=== PATIENT | male | born 1960 | race Caucasian/White ===

== ENCOUNTER 2021-01-19 16:35 | Observation (INO) | payer OTHER ==
[~2021-01-19] VITALS: Ht 188 cm; Wt 90.7 kg
[~2021-01-19 16:35] MED LIST: HYDACE5; META800 PO; MULVITA
[2021-01-19 17:26] LABS: BASOPHILS ABSOLUTE AUTO 0.12 K/mm3 (0.00-0.23); BASOPHILS PERCENT AUTO 1 % (0-2); EOSINOPHILS ABSOLUTE AUTO 0.08 K/mm3 (0.00-0.68); EOSINOPHILS PERCENT AUTO 1 % (0-6); Hematocrit 52.3 % (37.0-53.0); IMMATURE GRAN ABSOLUTE AUTO 0.06 K/mm3 (0.00-0.10); IMMATURE GRAN PERCENT AUTO 1 % (0-1); LYMPHOCYTES ABSOLUTE AUTO 1.79 K/mm3 (0.84-5.20); LYMPHOCYTES PERCENT AUTO 14 % (21-46); MONOCYTES ABSOLUTE AUTO 0.64 K/mm3 (0.16-1.47); MONOCYTES PERCENT AUTO 5 % (4-13); Mean Corpuscular HGB 34.8 pg (26.0-34.0); Mean Corpuscular HGB Conc 34.4 g/dL (31.5-36.5); Mean Corpuscular Volume 101 fL (80-100); Mean Platelet Volume 9.9 fL (9.1-12.4); NEUTROPHILS ABSOLUTE AUTO 10.16 K/mm3 (1.96-9.15); NEUTROPHILS PERCENT AUTO 79 % (41-73); Platelet Count 233 K/mm3 (150-400); RDW Coefficient Variation 13.2 % (11.7-14.2); RDW Standard Deviation 50.2 fL (35.1-46.3); Red Blood Cell Count 5.17 M/mm3 (4.30-5.90); White Blood Cell Count 12.85 K/mm3 (4.00-11.30)
[2021-01-19 17:49] LABS: Alanine Aminotransfer (ALT/SGP 129 U/L (12-78); Albumin/Globulin Ratio 0.8 (0.8-1.8); Alk Phos 116 U/L (50-136); Anion Gap 11 mmol/L (6-16); Aspartate Aminotrans (AST/SGOT 88 U/L (12-37); Bilirubin, Total 0.5 mg/dL (0.1-1.0); Blood Urea Nitrogen 10 mg/dL (8-24); CO2, Blood 21 mmol/L (21-32); Calcium, Blood 8.9 mg/dL (8.5-10.1); Chloride, Blood 106 mmol/L (98-108); Creatinine, Blood 0.77 mg/dL (0.60-1.20); Ethanol (Alcohol), Blood, Med 170 mg/dL; Globulin, Blood 4.9 g/dL (2.2-4.0); Glomerular Filtration Rate >60 (60-); Glucose, Blood 101 mg/dL (70-99); Salicylate 4.9 mg/dL (2.8-20.0); Sodium, Blood 138 mmol/L (136-145); Total Protein, Blood 8.9 g/dL (6.4-8.2)
[2021-01-19 17:53] LABS: Acetaminophen, Random <2.0 ug/mL (10.0-30.0)
[2021-01-19 20:01] LABS: Source, Urine Clean Catch
[2021-01-19 20:12] LABS: Appearance, Urine Clear (Clear); Bilirubin, Urine Neg (Neg); Blood, Urine 3+ (Neg); Color, Urine Yellow (P-Yellow); Glucose Qualitative, Urine Neg (Neg); Ketones, Urine 3+ (Neg); Leukocyte Esterase, Urine 1+ (Neg); Nitrite, Urine Neg (Neg); Protein, Urine 3+ (Neg); Specific Gravity, Urine 1.025 (1.003-1.022); Urobilinogen, Urine 3+ (Normal)
[2021-01-19 20:54] LABS: Bacteria Rare /hpf; Red Blood Cells, Urine 0-2 /hpf (0-2); Squamous Epithelial Cells Rare /hpf (Few)
[2021-01-19 20:55] LABS: Granular Casts 0-2 /lpf (0); Mucus Mod (0-Heavy); WBC Cast Rare /lpf (0)
[2021-01-19 20:56] LABS: U Amphetamine Screen Not Detected; U Barbituate Screen Not Detected; U Benzodiazapine Screen Not Detected; U Buprenorphine Screen Not Detected; U Cannabinoids Screen Not Detected; U Cocaine Screen Not Detected; U Methadone Screen Not Detected; U Methamphetamine Screen Not Detected; U Opiates Screen Not Detected; U Oxycodone Screen Not Detected; U Phencyclidine Screen Not Detected; U Propoxyphene Screen Not Detected
[2021-01-19 21:16] LABS: Influenza A, PCR NEGATIVE (NEGATIVE); Influenza B, PCR NEGATIVE (NEGATIVE); Resp Syncytial Virus, PCR NEGATIVE (NEGATIVE); SARS-Cov-2 (COVID-19) PCR, MMC NEGATIVE (NEGATIVE)
[2021-01-20] MEDS ORDERED: CHLO25 PO (10:14)
== END 2021-01-20 11:14 | disposition home or self-care (01) ==
LOC: ER 16:35 → EOR 16:36
PROVIDERS: Physician Assistant; ADMIT Emergency Medicine
DX: F10.129 Alcohol abuse with intoxication, unspecified (principal); R45.851 Suicidal ideations; F17.200 Nicotine dependence, unspecified, uncomplicated; Z79.899 Other long term (current) drug therapy; Z20.822 Contact with and (suspected) exposure to COVID-19; Y90.6 Blood alcohol level of 120-199 mg/100 ml
CPT/HCPCS: 0241U; 36415; 80053; 81001; 85025; 87086; 99285; A9270; G0378; G0480

== ENCOUNTER 2021-06-27 12:51 | Inpatient (IN) | payer OTHER ==
[~2021-06-27] VITALS: Ht 182.9 cm; Wt 86.5 kg
[~2021-06-27 12:51] MED LIST changes: +CHLO25 PO
[2021-06-27 13:23] LABS: BASOPHILS ABSOLUTE AUTO 0.03 K/mm3 (0.00-0.23); BASOPHILS PERCENT AUTO 0 % (0-2); EOSINOPHILS PERCENT AUTO 0 % (0-6); Hematocrit 46.2 % (37.0-53.0); IMMATURE GRAN ABSOLUTE AUTO 0.06 K/mm3 (0.00-0.10); IMMATURE GRAN PERCENT AUTO 0 % (0-1); LYMPHOCYTES ABSOLUTE AUTO 0.48 K/mm3 (0.84-5.20); LYMPHOCYTES PERCENT AUTO 3 % (21-46); MONOCYTES ABSOLUTE AUTO 1.05 K/mm3 (0.16-1.47); MONOCYTES PERCENT AUTO 7 % (4-13); Mean Corpuscular HGB 34.1 pg (26.0-34.0); Mean Corpuscular HGB Conc 34.6 g/dL (31.5-36.5); Mean Corpuscular Volume 99 fL (80-100); Mean Platelet Volume 10.9 fL (9.1-12.4); NEUTROPHILS ABSOLUTE AUTO 13.19 K/mm3 (1.96-9.15); NEUTROPHILS PERCENT AUTO 89 % (41-73); Platelet Count 175 K/mm3 (150-400); RDW Coefficient Variation 12.5 % (11.7-14.2); RDW Standard Deviation 45.6 fL (35.1-46.3); Red Blood Cell Count 4.69 M/mm3 (4.30-5.90); White Blood Cell Count 14.81 K/mm3 (4.00-11.30)
[2021-06-27 13:42] LABS: Alanine Aminotransfer (ALT/SGP 161 U/L (12-78); Albumin, Blood 3.4 g/dL (3.4-5.0); Albumin/Globulin Ratio 0.8 (0.8-1.8); Alk Phos 94 U/L (50-136); Anion Gap 11 mmol/L (6-16); Aspartate Aminotrans (AST/SGOT 133 U/L (12-37); Bilirubin, Total 0.4 mg/dL (0.1-1.0); Blood Urea Nitrogen 12 mg/dL (8-24); Bun/Creatinine Ratio 16.9 (12.0-20.0); CO2, Blood 25 mmol/L (21-32); Calcium, Blood 8.6 mg/dL (8.5-10.1); Chloride, Blood 102 mmol/L (98-108); Creatinine, Blood 0.71 mg/dL (0.60-1.20); Ethanol (Alcohol), Blood, Med <3 mg/dL; Globulin, Blood 4.1 g/dL (2.2-4.0); Glomerular Filtration Rate 106 (60-); Glucose, Blood 166 mg/dL (70-99); Potassium, Blood 3.7 mmol/L (3.5-5.5); Sodium, Blood 138 mmol/L (136-145); Total Protein, Blood 7.5 g/dL (6.4-8.2)
[2021-06-27 16:09] LABS: Source, Urine Condom Cath
[2021-06-27 16:15] LABS: Appearance, Urine Clear (Clear); Bilirubin, Urine Neg (Neg); Blood, Urine 5+ (Neg); Color, Urine Amber (P-Yellow); Glucose Qualitative, Urine 2+ (Neg); Ketones, Urine 2+ (Neg); Leukocyte Esterase, Urine Neg (Neg); Nitrite, Urine Neg (Neg); Protein, Urine 2+ (Neg); Specific Gravity, Urine 1.025 (1.003-1.022); Urobilinogen, Urine NORM (Normal)
[2021-06-27 16:23] LABS: Mucus Light (0-Heavy)
[2021-06-27 16:24] LABS: Bacteria Mod /hpf; Red Blood Cells, Urine 0-2 /hpf (0-2); Squamous Epithelial Cells Not Seen /hpf (Few); White Blood Cells, Urine 0-2 /hpf (0-5)
[2021-06-27 16:38] LABS: U Amphetamine Screen Not Detected; U Barbituate Screen Not Detected; U Benzodiazapine Screen Not Detected; U Buprenorphine Screen Not Detected; U Cannabinoids Screen Not Detected; U Cocaine Screen Not Detected; U Methadone Screen Not Detected; U Methamphetamine Screen Not Detected; U Opiates Screen Not Detected; U Oxycodone Screen Not Detected; U Phencyclidine Screen Not Detected; U Propoxyphene Screen Not Detected
[2021-06-27 16:44] LABS: PCO2 Arterial 43.6 mmHg (35-45); PO2 Arterial 111 mmHg (80-100)
[2021-06-27 18:22] LABS: Creatine Kinase MB 25.2 ng/mL (0.0-3.6); Creatine Kinase MB Index 0.5 (0.0-4.0)
--- NOTE | 2021-06-27 23:00 | NUR ---
UPDATE/ICU TRANSFER PT ARRIVED TO ED AT 2054. PT AWAKENS TO VERBAL STIMULI. GARBLED SPEECH, PT CONFUSED ON LOCATION, HAVING VIVID HALLUCINATIONS. SOILED IN URINE AND FECES UPON ARRIVAL TO UNIT. R LEG COVERED IN RED RASH, BLISTER ON L SHOULDER. PICS IN CHART. PT CONT TO PULL AT LINES, ATTEMPTING TO CLIMB OUT OF BED. PHYSICIAN NOTIFIED. CIWA ORDERS PLACED. PT CIWA 19, MEDICATED WITH 4MG OF ATIVAN. PT CONT TO HAVE SEVERE TREMORS, YELLING OUT. PHYSICIAN NOTIFIED OF POSSIBLE SEIZURE LIKE ACTIVITY OR SEVERE WITHDRAWL. PHYSICIAN AT BEDSIDE TOLD TO GIVE 4 MORE MG OF ATIVAN. PT NOW SLEEPING. EKG DONE PER PHYSICIAN ORDER. ORDERS FOR PT TO BE TRANSFERRRED TO ICU. REPORT GIVEN TO TAVO RN BY [facility] STUDENT RN UNDER THIS RN SUPERVISION. PT TRANSPORTED TO ICU 7 BY THIS RN AND STUDENT WITH CHART AND ALL BELONGINGS.
--- NOTE | 2021-06-27 23:26 | NUR ---
ASSUMED CARE. REPORT RECEIVED FROM AIRCRAFT SHIPPING CHECKER. PT ARRIVED TO ICU AT APPROXIMATELY 2250. PT GIVEN 8MG ATIVAN IN PCU PRIOR TO ICU ADMIT, UPON ARRIVAL PT WAS SLEEPING AND UNAROUSABLE. PT ON 02 VIA NC AT 2 L/MIN. IV ACCESS IN R/AC. SECOND IV STARTED IN L/FOREARM. DIEGO CATHETER INSERTED, UA SENT TO LAB. VS STABLE ATT, WILL CONTINUE TO MONITOR.
[2021-06-27 23:41] LABS: Source, Urine Foley catheter
[2021-06-27 23:43] LABS: Bilirubin, Urine Neg (Neg); Blood, Urine 3+ (Neg); Glucose Qualitative, Urine Neg (Neg); Ketones, Urine Neg (Neg); Leukocyte Esterase, Urine Neg (Neg); Nitrite, Urine Neg (Neg); Protein, Urine 1+ (Neg); Urobilinogen, Urine NORM (Normal)
[2021-06-28 00:16] LABS: Appearance, Urine Clear (Clear); Color, Urine Yellow (P-Yellow)
[2021-06-28 00:17] LABS: Bacteria Rare /hpf; Squamous Epithelial Cells Not Seen /hpf (Few)
[2021-06-28 04:06] LABS: Magnesium, Blood 2.3 mg/dL (1.6-2.4)
[2021-06-28 04:12] LABS: Albumin, Blood 2.7 g/dL (3.4-5.0); Albumin/Globulin Ratio 0.8 (0.8-1.8); Bilirubin, Total 0.3 mg/dL (0.1-1.0); Creatinine, Blood 0.69 mg/dL (0.60-1.20); Globulin, Blood 3.6 g/dL (2.2-4.0); Potassium, Blood 3.7 mmol/L (3.5-5.5); Total Protein, Blood 6.3 g/dL (6.4-8.2)
--- NOTE | 2021-06-28 09:05 | NUR ---
TOOK OVER CARE OF PT AT 0850, PT RESTING ON 2L NC, AND .5 OF PRECEDEX RUNNING
[2021-06-28 11:42] LABS: PCO2 Arterial 35.3 mmHg (35-45); PO2 Arterial 64.3 mmHg (80-100); pH Blood Arterial 7.44 (7.35-7.45)
[2021-06-28 15:49] LABS: Bun/Creatinine Ratio 11.3 (12.0-20.0); Calcium, Blood 7.9 mg/dL (8.5-10.1); Creatinine, Blood 0.8 mg/dL (0.60-1.20); Potassium, Blood 3.9 mmol/L (3.5-5.5)
--- NOTE | 2021-06-28 17:47 | NUR ---
SUMMARY NEURO; PT IS LETHARGIC, DOES NOT FOLLOW COMMANDS BUT WILL BECOME VERY AGITATED VERY QUICKLY AFTER BARELY RESPONDING TO STIMULI SUCH NT SUCTIONING. NO COHERENT WORDS UTTERED, ONLY GARBLED MUMBLING. PT HAS NOT OPEN THEIR EYES BY THEMSELVES THIS SHIFT BUT HAS FIDGETED A FEW TIMES. INTERMITTENT EPISODES OF TWITCHING AND TREMORS. SEIZURE PADS IN PLACE. 4MG ATIVAN GIVEN THROUGHOUT THIS SHIFT. PT CURRENTLY ON .3 OF PRECEDEX GTT. LUNGS: RHONCHI THROUGHOUT, PT WAS NOT MAINTAINING AIRWAY AT BEGINNING OF SHIFT, ALLOWED TONGUE TO FLOP IN BACK OF THROAT WHILE ON 2LNC, INCREASED TO 4LNC AND A NASAL TRUMPET PLACED. FREQUENT DEEP NT SUCTIONING. THICK DOUGHERTY SECRETIONS REMOVED AND SPUTUM CULTURE SENT. DR. SHEPHERD TO BEDSIDE AND DETERMINED NO NEED FOR INTUBATION AT THIS TIME. SKIN; SUN BURN GI; NPO ; URINE WAS INITIALLY KULWINDER, PT GOT DOWN TO 5ML/HR OF URINE MADE BEFORE 1L NS BOLUS STARTED. URINE CLEARED UP UNTIL 1600 AND NOW THE URINE OUPUT HAS DECREASED BACK TO 25ML/HR FOR 1700 AND 1800.
--- NOTE | 2021-06-28 21:19 | NUR ---
SHIFT ASSESSMENT PT LIGHTLY SEDATED IN BED, ON 0.3MCG/KG/HR OF PRECEDEX. PRN ATIVAN FOR SEZIURES AND CIWA. BL SOFT WRIST RESTRAINTS IN PLACE DUE TO PT PULLING AT LINES/ UNPREDICTABLE BEHAVIOR. NASAL TRUMPET IN R NARE FOR NT SUCTION. PT CURRENTLY ABLE TO COUGH AND CLEAR/ SWALLOW SECRETIONS. ON 3-6LPM O2 VIA NC c O2 SATS >88%. PT WILL AWAKEN, VERBAL RESPONSE INCOMPREHENSIBLE. STRONG ACCOUNT MANAGER FOREST SERVICE STRENGTH OF L HAND TO COMMAND, MOVING ALL EXTREMITIES. OCCASIONALLY TREMULOUS. TEMP PROBE DIEGO PATENT, DRAINING KULWINDER URINE. NPO, NO BM TODAY. ORAL CAVITY CRUSTY, TEETH MISSING, FREQUENT ORAL CARE. WILL CONTINUE TO MONITOR CLOSELY.
[2021-06-29 03:28] LABS: BASOPHILS ABSOLUTE AUTO 0.07 K/mm3 (0.00-0.23); BASOPHILS PERCENT AUTO 1 % (0-2); EOSINOPHILS ABSOLUTE AUTO 0.05 K/mm3 (0.00-0.68); EOSINOPHILS PERCENT AUTO 0 % (0-6); Hematocrit 45.5 % (37.0-53.0); Hemoglobin 14.7 g/dL (13.5-17.5); IMMATURE GRAN ABSOLUTE AUTO 0.03 K/mm3 (0.00-0.10); IMMATURE GRAN PERCENT AUTO 0 % (0-1); LYMPHOCYTES ABSOLUTE AUTO 1.57 K/mm3 (0.84-5.20); LYMPHOCYTES PERCENT AUTO 13 % (21-46); MONOCYTES ABSOLUTE AUTO 1.71 K/mm3 (0.16-1.47); MONOCYTES PERCENT AUTO 14 % (4-13); Mean Corpuscular HGB 34.1 pg (26.0-34.0); Mean Corpuscular HGB Conc 32.3 g/dL (31.5-36.5); Mean Platelet Volume 10.9 fL (9.1-12.4); NEUTROPHILS PERCENT AUTO 73 % (41-73); Platelet Count 146 K/mm3 (150-400); RDW Coefficient Variation 13.2 % (11.7-14.2); RDW Standard Deviation 52.5 fL (35.1-46.3); Red Blood Cell Count 4.31 M/mm3 (4.30-5.90); White Blood Cell Count 12.53 K/mm3 (4.00-11.30)
[2021-06-29 03:37] LABS: Mean Corpuscular Volume 106 fL (80-100)
[2021-06-29 03:52] LABS: Magnesium, Blood 2.1 mg/dL (1.6-2.4)
[2021-06-29 04:45] LABS: PCO2 Arterial 33.1 mmHg (35-45); PO2 Arterial 57.9 mmHg (80-100); pH Blood Arterial 7.46 (7.35-7.45)
[2021-06-29 05:16] LABS: Bun/Creatinine Ratio 11.1 (12.0-20.0); Calcium, Blood 8.1 mg/dL (8.5-10.1); Creatinine, Blood 0.72 mg/dL (0.60-1.20); Phosphorus, Blood 1.9 mg/dL (2.5-4.9); Potassium, Blood 3.7 mmol/L (3.5-5.5)
--- NOTE | 2021-06-29 06:16 | NUR ---
SHIFT SUMMARY PT REMAINS SEDATED c PRECEDEX. INCONSISTENTLY FOLLOWING SIMPLE COMMANDS. MOST OF THE NIGHT PRECEDEX @ A FAIRLY LOW DOSE BUT PT BECAME MORE AGITATED LATER THIS MORNING, CURRENTLY @ 0.7MCG/KG/HR. WITH THE INCREASED AGITATION PTS TEMPERATURE IS CLIMBING, T-MAX OF 101.0. ICE PACKS TO AXILLA AND FAN ON PT, TEMP SLOWLY GOING DOWN. PT MEDICATED MULTIPLE TIMES c ATIVAN FOR CIWA SCORES >15. PT ALSO HAVING WHAT APPEARS TO BE SEIZURES, MEDICATED c ATIVAN MULTIPLE TIMES. PT COUGHING UP THICK DOUGHERTY SPUTUM. REMAINS ON NC @ 5LPM c O2 SATS >90%. URINE OUTPUT >30ML/HR, COLOR LIGHTENING FROM KULWINDER TO LIGHT YELLOW. NO OTHER ACUTE CHANGES.
--- NOTE | 2021-06-29 11:21 | NUR ---
UPDATE REPORT GIVEN TO ROSE NICOLE TO ASSUME CARE
--- NOTE | 2021-06-29 17:07 | NUR ---
SHIFT SUMMARY PT HAS BEEN RESTING IN BED SINCE ASSUMING CARE AT 1100. HE REMAINS ON PRECEDEX. AFTER HIS BED BATH HIS RR AND HR WERE BOTH ELEVATED AND PT WAS MORE AGITATED. CIWAA 14 AT THAT TIME SO ATIVAN GIVEN AND PT RELAXED, HR AND RR CAME DOWN. PT HAS PURPOSEFUL MOVEMENTS, LIKE REACHING FOR THE SUCTION DURING ORAL CARE, BUT IS ONLY RESPONDING TO PAIN AND IS NOT FOLLOWING COMMANDS. HE HAS HAD A LARGE AMT OF SPUTUM COUGHED UP, REQUIRING ORAL SUCTIONING SOMETIMES TO CLEAR THE SPUTUM. THE SPUTUM IS THICK, DOUGHERTY-DARK BROWN. LUNGS ARE COARSE. 4L/NC. SINUS TACH WITH RATE IN THE LOW 100S. BP STABLE. NOT SAFE FOR PO INTAKE TODAY. DIEGO WITH YELLOW URINE. WOUNDS UNCHANGED. CONTINUING TO MONITOR.
--- NOTE | 2021-06-29 19:13 | NUR ---
ASSUMPTION OF CARE PT IS RECEIVING PRECEDEX 0.5MCG/KG/HR AND D5 1/2NS AT 75ML/HR. HE IS ON 4L NC. HE APPEARS TO BE RESTING COMFORTABLY, RESPONDS TO NOXIOUS STIMULI, MOVES HEAD SIDE TO SIDE AND PULLS AGAINST WRIST RESTRAINTS. DIEGO IN PLACE. TEMP 100.2, ICE PACKS AND FAN IN PLACE. SEE SHIFT ASSESSMENT.
[2021-06-30 03:35] LABS: BASOPHILS PERCENT AUTO 1 % (0-2); EOSINOPHILS ABSOLUTE AUTO 0.18 K/mm3 (0.00-0.68); EOSINOPHILS PERCENT AUTO 1 % (0-6); Hematocrit 44.6 % (37.0-53.0); Hemoglobin 14.9 g/dL (13.5-17.5); IMMATURE GRAN ABSOLUTE AUTO 0.07 K/mm3 (0.00-0.10); IMMATURE GRAN PERCENT AUTO 1 % (0-1); LYMPHOCYTES ABSOLUTE AUTO 1.37 K/mm3 (0.84-5.20); LYMPHOCYTES PERCENT AUTO 9 % (21-46); MONOCYTES ABSOLUTE AUTO 2.16 K/mm3 (0.16-1.47); MONOCYTES PERCENT AUTO 15 % (4-13); Mean Corpuscular HGB 34.1 pg (26.0-34.0); Mean Corpuscular HGB Conc 33.4 g/dL (31.5-36.5); Mean Corpuscular Volume 102 fL (80-100); Mean Platelet Volume 10.6 fL (9.1-12.4); NEUTROPHILS ABSOLUTE AUTO 10.66 K/mm3 (1.96-9.15); NEUTROPHILS PERCENT AUTO 73 % (41-73); Platelet Count 147 K/mm3 (150-400); RDW Coefficient Variation 12.5 % (11.7-14.2); RDW Standard Deviation 47.8 fL (35.1-46.3); Red Blood Cell Count 4.37 M/mm3 (4.30-5.90); White Blood Cell Count 14.54 K/mm3 (4.00-11.30)
[2021-06-30 03:52] LABS: Bun/Creatinine Ratio 10.2 (12.0-20.0); Calcium, Blood 8.3 mg/dL (8.5-10.1); Creatinine, Blood 0.79 mg/dL (0.60-1.20); Magnesium, Blood 2.1 mg/dL (1.6-2.4); Phosphorus, Blood 2.7 mg/dL (2.5-4.9); Potassium, Blood 3.7 mmol/L (3.5-5.5)
--- NOTE | 2021-06-30 05:23 | NUR ---
SHIFT SUMMARY PT REMAINS ON PRECEDEX 0.5MCG/KG/HR AND D5 1/2NS 75ML/HR. HE RESPONDS TO QUESTIONS BY NODDING/SHAKING HEAD. HE DENIES PAIN, DISCOMFORT, AND ANXIETY. HE IS ABLE TO SQUEEZE WITH BOTH HANDS. OCCASIONALLY OPENS EYES TO VERBAL STIMULI BUT THEN CLOSES THEM. ORAL CARE PROVIDED SEVERAL TIMES THROUGHOUT SHIFT. PT HAS LARGE AMOUNTS OF THICK BROWN SECRETIONS BUILT UP IN ORAL CAVITY. PT COOPERATIVE WITH CARE. HE HAS A STRONG COUGH THAT IS PRODUCTIVE. PT REMAINS IN BILAT SOFT WRIST RESTRAINTS DUE TO SEDATION. CORE TEMP 99.1. DIEGO PATENT AND DRAINING YELLOW URINE WITH SHIFT OUTPUT 1550ML. VSS. WILL REPORT TO ONCOMING RN.
--- NOTE | 2021-06-30 09:21 | NUR ---
0800 ASSUMED CARE PATIENT DROWSY BUT ALERT TO VOICE. HE STATES HE NAME AND .. MUMBLING. DARNELL VS STABLE AND HE IS AFEBRILE. HE IS ON PRECEDEX AT 0.5.. TITRATING TO OFF.. PATIENT HAS DIEGO.. DIEGO CARE COMPLETE..GOOD URINE OUT PUT. IV MEDS AND SQ MEDS GIVEN. PIV WITH IV FLUIDS GOING ALONG WITH D5-1/2NS AT 75/HR. NO ACUTE CHANGES AT THIS TIME. WILL CONTINUE CARE FOR THE DAY.
--- NOTE | 2021-06-30 11:27 | NUR ---
1030 am swallow eval.. patient was able to swallow water from a cup and from a straw without difficulty. He has a good cough response if necessary but did not cough s/p drinking the water. He ate some jello too. Dr Alvarado was notified and she ordered librium now and a full liquid diet for him. He does still tremble with his hands but otherwise his CIWA is bean 3 from that.
--- NOTE | 2021-06-30 17:13 | NUR ---
end of shift report: Orville has had a moderately ok day. He is more alert, talking however more a mumble then clear. He is alert and oriented to person/place/date within a few days, date of . He is eating and drinking without difficulty on a full liquid diet. His dentures are not in his mouth but are at bedside at this time. He has a visitor this afternoon and is interacting with him and able to state he is family. Vital signs are stable but temp is low grade, he has been washed down with cool clothes and has only a sheet on. Urine output has been good today. Report to be given to PCU staff to assume care.
[2021-07-01 04:22] LABS: BASOPHILS ABSOLUTE AUTO 0.06 K/mm3 (0.00-0.23); BASOPHILS PERCENT AUTO 1 % (0-2); EOSINOPHILS ABSOLUTE AUTO 0.13 K/mm3 (0.00-0.68); EOSINOPHILS PERCENT AUTO 1 % (0-6); Hematocrit 40.1 % (37.0-53.0); Hemoglobin 13.8 g/dL (13.5-17.5); IMMATURE GRAN ABSOLUTE AUTO 0.08 K/mm3 (0.00-0.10); IMMATURE GRAN PERCENT AUTO 1 % (0-1); LYMPHOCYTES ABSOLUTE AUTO 1.26 K/mm3 (0.84-5.20); LYMPHOCYTES PERCENT AUTO 13 % (21-46); MONOCYTES ABSOLUTE AUTO 1.55 K/mm3 (0.16-1.47); MONOCYTES PERCENT AUTO 16 % (4-13); Mean Corpuscular HGB Conc 34.4 g/dL (31.5-36.5); Mean Corpuscular Volume 99 fL (80-100); Mean Platelet Volume 10.9 fL (9.1-12.4); NEUTROPHILS PERCENT AUTO 68 % (41-73); Platelet Count 209 K/mm3 (150-400); RDW Coefficient Variation 12.5 % (11.7-14.2); RDW Standard Deviation 45.5 fL (35.1-46.3); Red Blood Cell Count 4.06 M/mm3 (4.30-5.90); White Blood Cell Count 9.58 K/mm3 (4.00-11.30)
[2021-07-01 04:46] LABS: Bun/Creatinine Ratio 10.3 (12.0-20.0); Calcium, Blood 8.6 mg/dL (8.5-10.1); Creatinine, Blood 0.97 mg/dL (0.60-1.20); Magnesium, Blood 2.2 mg/dL (1.6-2.4); Phosphorus, Blood 2.9 mg/dL (2.5-4.9); Potassium, Blood 3.7 mmol/L (3.5-5.5)
--- NOTE | 2021-07-01 05:11 | NUR ---
SHIFT SUMMARY PT ALERT, CONFUSED. PT LOOKING FOR PEN IN BED. WHEN ASKED WHAT FOR, PT STATES, "TO TAKE THE TEST!" SP02>92% ON RA. SINUS TACH, VSS. LIBRIUM GIVEN X1 THIS SHIFT. DIEGO CATHETER DRAINING DARK YELLOW URINE TO GRAVITY. PT ATTEMPTING TO CLIMB OUT OF BED, LOOKING FOR THINGS UNDER BED. SLEPT AT BEGINNING OF SHIFT. AWAKE FOR THE 2ND HALF. BED ALARM ON. CAMERA ON. CALL LIGHT IN REACH.
--- NOTE | 2021-07-01 18:00 | NUR ---
ASSUMED CARE OF PT AT 0700. PT WORKED WITH SPEECH THERAPY TODAY, DIET ADVANCED TO PUREE, PILLS WHOLE WITH APPLE SAUCE, PT TOLERATED DIET WELL ALL DAY. PHYSICAL THERAPY WORKED WITH PT TODAY WELL. PT HAS HAD NO COMPLAINTS, SEE DOCUMENTED VS. NO ACUTE EVENTS. PT HAS HAD SOME PO INTAKE AND GOOD URINE OUTPUT IN DIEGO. BED ALARM AND CAMERA MONITORING ON FOR SAFETY. WILL CONTINUE TO MONITOR AND GIVE REPORT TO NOC SHIFT RN.
--- NOTE | 2021-07-02 06:07 | NUR ---
SHIFT SUMMARY NO ACUTE CHANGES OVERNIGHT. PT ALERT, SLEEPY, FOLLOWED DIRECTIONS. VSS. PT REPOSITIONED SELF IN BED. DIEGO CATHETER DRAINING TO GRAVITY. NO BM THIS SHIFT. PT DENIED PAIN. CIWA OF 3 D/T TREMORS AND NOT ORIENTED TO DATE. SLEPT MOST OF NIGHT. ABX INFUSED PER EMAR. CALL LIGHT IN REACH. BED ALARM ON.
--- NOTE | 2021-07-02 07:58 | NUR ---
CARE ASSUMPTION THIS RN ASSUMED CARE AT 0700 FROM KIMBER NICOLE. PATIENT IS ALERT AND ORIENTED X4. PERRLA. PATIENT DOESN'T REMEMBER HOW HE GOT TO THE HOSPITAL AND THIS RN PROVIDED THERAPUETIC COMMUNICATION AND ACTIVE LISTENING. THIS RN EXPLAINED THAT HE WAS FOUND DOWN AND BROUGHT IN. THIS RN ASKED IF HE LIVES IN HIS CAR, AND PATIENT STATED HE CURRENTLY IS BECAUSE HE AND HIS GIRLFRIEND BROKE UP AND GOT KICKED OUT AND SHE HAD SOMEONE ELSE MOVE IN. THIS RN ASKED IF HE CURRENTLY WORKS. PATIENT STATED "NOT CURRENTLY, BUT USED TO WORK AT [employer]." PATIENT MAIN CONCERNS ARE WHERE HIS GLASS, DENTURES, AND PHONE ARE. THIS RN GAVE THE PATIENT HIS BELONGING BAGS AND THEY WERE NOT IN HIS BAGS OR IN THE ROOM WHEN THIS RN LOOKED. I WILL LOOK THROUGH OLD NOTES TO DETERMINE IF THEY WERE WITH HIM WHEN HE ARRIVED. PATIENT REPORTS NO CHEST PAIN, HEADACHE, OR PAIN. TELE SR 95. VSS. SPO2 >93% ON RA. STRONG RADIAL AND PEDIS PULSES NO EDEMA. PATIENT LUNG SOUNDS COARSE AND REPORTS MINIMAL SHORTNESS OF BREATH WITH EXERTION IN BED. ABD SOFT ACTIVE NONTENDER. PATIENT HAS REDDNSS TO SKIN FOLDS, BLISTER ON LEFT ARM THAT IS OPEN TO AIR, REDDNESS TO RIGHT THIGH, REDDNESS TO PENIS, AND DRY MUCOUS MEMBRANES AND PLAQUE ON ROOF OF MOUTH. SEE SHIFT ASSESSMETN FOR FURTHER DETAILS. CIWA SCORE THIS AM WAS 1, SEE ASSESSMENT. SPEECH IS IN THIS AM TO WORK WITH THE PATIENT. DIEGO CATH IS DRAINING WITH GRAVITY, YELLOW COLORATION. CALL LIGHT WITHIN REACH AND BED IN LOWEST POSITION. WILL CONINTUE TO MONITOR AND PROVIDE CARE.
--- NOTE | 2021-07-02 11:34 | NUR ---
UPDATE-SI OCCUPATIONAL THERAPY JOESPH WAS IN WORKING WITH THE PATIENT. THE PATIENT BEGAN TO VENT AND TOLD THE OCCUPATIONAL THERAPIST THAT HE OVERDOSED ON HIS AMITRIPTYLINE AND BEERS A SUICIDE ATTEMPT. OCCUPATIONAL THERAPIST INFORMED THIS RN. THIS RN INFORMED HOSTESS AND WENT IN TO DO AN ASSESSMENT ON THE PATIENT. THIS RN USED THERAPITIC COMMUNICATION, ACTIVE LISTENING, AND SILENCE THROUGHOUT THE COVNERSATION. PATIENT STATED THAT HE HAS SUCICIDAL THOUGHTS SINCE HIS ATTEMPT, BUT DOESNT HAVE A PLAN, AND THE THOUGHTS COME AND GO. THE PATIENT RECENTLY MOVED HERE FROM [facility] AFTER THE EX GIRLFRINED REACHED OUT TO HIM ON FACEBOOK AND WANTED TO GET BACK TOGETHER. PRIOR TO THIS IT HAS BEEN FIVE YEARS SINCE HE SPOKE TO HER. HE GOT A JOB AT [employer] AND MOVED IN WITH HIS EX GIRLFRIEND. PATIENT STAED "SHE STARTED TO GROW DISTANT AND HE WOULD ASK WHATS WRONG AND SHE WOULD SAY EVERYTHING IS FINE" HE STATED SHE LATER KICKED HIM OUT AND HE HAS BEEN LIVING IN HIS CAR FOR ABOUT A MONTH. HE STATED DURING THIS MONTH PERIOD HE WOULD DROP OFF NOTES AT HER HOUSE ASKING HER TO TALK TO HIM. HE STATED THAT A COUPLE OF THE TIMES WHEN HE DROPPED OFF NOTES THAT OTHER GENTLEMAN WERE THERE. PATIENT STATED HE DECIDED TO ATTEMPT SUICIDE WHEN HE REALIZED THAT SHE DIDN'T CARE AND TOOK THE PILLS AND BEER. HE MENTIONED HE HAS HAD PERVIOUS BAD RELATIONSHIPS WITH FEMALES AND STATED "HIS DIRECTOR OF STATE IS BAD". THIS RN REASSESSED THE PATIEN, MITIGATED THE ROOM, INFORMED THE CAMERA MONIOR, AND INFORMED THE MD. CAMERA IS ON. THIS RN WILL PROVIDE MORE FREQUENT CHECKS AND BE AVAILABLE IF THE PATIENT NEEDS SOMEONE TO TALK TO. CALL LIGHT IS WITHIN REACH.
--- NOTE | 2021-07-02 14:52 | NUR ---
Spiritual Care - Nurse requested visit Pt. is in bed and welcomes my visit. Pt. is unsettled but without need of restraint. Pt. displays evidence of both rejection, and confusion. Pt. verbalizes his attempt to drown out his pain with beer and pills, and that he has no recollectiton of how he got to the hospital. Pt. is unsettled about the whereabouts of his car (containing all his cloths). Listen empathetically with a calming presence. Pt. displays evidence of responding politely but guardedly. Gave pastoral guidance to the value of his personal worth. The pt. gave permission to pray for him. Prayed with Pt. and communicated my availability to him throughout the day today. Updated Nurse Oliva after leaving the room.
--- NOTE | 2021-07-02 17:30 | NUR ---
SHIFT SUMMARY PATIENT AFFECT IS FLAT AND NEUTRAL. PATIENT HAS HAD EPISODES OF CRYING ON AND OFF. THIS RN USED THERAPUETIC COMMUNICATION AND ACTIVE LISTENING. THIS SEEMS TO HELP THE PATIENT. THE PATIENT WILL FEEL COMFORTABLE TALKING AND THEN BECOME VERY GUARDED. THIS RN HAS CHECKED ON THE PATIENT FREQUENTLY. SPIRITUAL CARE WENT IN AND VISITED WITH THE PATIENT. SEE NOTE. CAMERA MONITOR ON. VSS. THIS RN CALLED THE NON EMERGENCY NUMBER TO LOCATE THE PATIENTS CAR FOR HIM. IT IS BLACK 2009 WITH A TEMPORAY LICENSE FROM [place]. AWAITING A PHONE CALL BACK. LEFT MY NAME, AND ROOM NUMBER OF THE PATIENT. PATIENT IS WORRIED ABOUT HIS CAR AND PHONE AND THIS RN INFORMED HIM THAT WE ARE WAITING TO HEAR BACK AND KEEP HIM INFORMED. NO ACUTE CHANGES. CALL LIGHT WITIN REACH AND BED IN LOWEST POSITION. WILL CONTINUE TO MONITOR AND PROVIDE CARE UNTIL HAND OFF WITH NEXT SHIFT.
--- NOTE | 2021-07-02 18:24 | NUR ---
CAR SITUATION UPDATE THIS RN RECIEVED A PHONE CALL FROM [employer]ATCH STATING THAT THE CAR IS AT THE SAME LOCATION WHERE THEY PICKED THE PATIENT UP.
--- NOTE | 2021-07-03 03:34 | NUR ---
SHIFT SUMMARY PT AFFECT IS FLAT AND WITHDRAWN BUT HE IS PLESANT AND COOPERATIVE WITH CARE. SI REMAINS UNCHANGED, AND RISK REMAINS LOW PER ASSESSMENT. PT CONTINUES ON CAMERA. PT HAS SLEPT MOST OF THE NIGHT, HE DENIES PAIN OR NEEDS. VITALS ARE STABLE. NO ACUTE CHANGES OVERNIGHT. BED IN LOWEST POSITION, CALL LIGHT WITHIN REACH.
--- NOTE | 2021-07-03 07:15 | NUR ---
ASSUMED CARE OF PATIENT AT 0700. PATIENT IS A&O X4. PATIENT REPORT HE HAD A GOOD NIGHT SLEEP. PATIENT AFFECT IS FLAT AND WITHDRAWN BUT PLEASANT AND COOPERATIVE WITH CARE. PATIENT REPORT THAT HE IS DEPRESSED AND HE MISSED HIS GIRLFRIEND A LOT AND HIS GIRLFRIEND TWO CHILDREN. PATIENT SI RISK ASSESSMENT THIS AM IS LOW AND STILL ON CAMERA FOR SAFETY. PATIENT DENIES CP/ OR CHEST DISCOMFORT. VSS. CALL LIGHT IN REACH.
--- NOTE | 2021-07-03 07:30 | NUR ---
Pt is alert, oriented and conversationally appropriate. States he has not before had any trouble urinating. Bladder training initiated with a view to d/c sutherland later today. IV sites bilateral upper extremities verified patency and normal insertion site assessment. Right antecubital space IV noted dressing was not intact; Old dressing removed, area cleansed per usual with IV start kit equipment and new sterile dressing applied. Pt. states that the IV feels fine. Flushed with 10 cc NS and the pt states feels fine. Active order for IV Unasyn.
--- NOTE | 2021-07-03 09:14 | NUR ---
Pt states that he was trying to hurt himself with alcohol and pills. States that he does not have a home. States that he is depressed. Denies coughing. Bladder training still in progress. Dr. Forrester here rounding on the pt at this time.
--- NOTE | 2021-07-03 14:53 | NUR ---
Dr. Latham is off for the holiday weekend. Called for telehealth psychiatric consultation.
--- NOTE | 2021-07-03 15:47 | NUR ---
Pt informed of plan for telepsychiatry visit. Pt states that he has voided since the sutherland catheter was removed.
--- NOTE | 2021-07-03 17:43 | NUR ---
Call to Dr. Santa to inform her of the assessment and plan as documented in written Telepsych report from Malu Padgett. Copy was placed also in the paper chart.
--- NOTE | 2021-07-03 18:12 | NUR ---
SHIFT SUMMARY PATIENT DIEGO WAS DISCONTINUED TODAY. HAS BEEN VOIDING AND AMBULATING TO BATHROOM INDEPENDENTLY. PATIENT HAD SHOWER AND EXPRESSES THAT HE FEELS A LITTLE BIT BETTER. SI REMAIN UNCHANGED FROM LAST ASSESMENT THIS AM. CIWA SCORE WAS 2. VSS. PATIENT STILL ON CAMERA FOR SAFETY. PATIENT MEDICAL STATUS WITH NO TELEMETRY NEEDED. WAITING FOR BED TO BE TRANSFERRED TO MEDICAL FLOOR. CALL LIGHT IN REACH. WILL GIVE REPORT TO ONCOMING NIGHT NURSE.
--- NOTE | 2021-07-04 05:37 | NUR ---
SHIFT SUMMARY A/O X4. VITAL SIGNS STABLE. VOIDING WELL. IND IN ROOM. NO ACUTE CHANGES OVER NIGHT. PT REPORTS FEELING "ABOUT THE SAME BEFORE." SUICIDE ASSESSMENT COMPLETE. PT HAS FLAT AND WITHDRAWN AFFECT, BUT IS COOPERATIVE W/ CARE. WILL CONTINUE TO MONITOR AND REPORT TO ONCOMING RN.
--- NOTE | 2021-07-04 10:00 | NUR ---
D/C ORDER NOTE THIS NURSE D/C'D NON-VIOLENT RESTRAINTS AND DISCUSSED WITH DR. CLEANING AT APPROX. 1000.
--- NOTE | 2021-07-04 13:52 | NUR ---
SI RISK NOTE AT APPROX. 1130 THIS NURSE COMPLETE THOMPSON SI RISK ASSESSMENT AND PT TRIGGERED ESCALATION OF LOW RISK STATUS TO MODERATE RISK STATUS. UPON FURTHER QUESTIONING PT DENIED HAVING ACTIVE PLANS TO COMMIT SUICIDE BUT STATED "I WISH NOBODY HAD FOUND ME." THIS NURSE NOTIFIED DR. CLEANING ABOUT CONVERSATION/ASSESSMENT AND DIRECTED THIS NURSE TO REPORT TO DR. LERMA FOR FURTHER CARE. THIS NURSE NOTIFIED DR. LERMA AT APPROX. 1350 OF THOMPSON SI RISK ASSESSMENT. THIS NURSE ALSO WENT INTO PT ROOM WITH CICI HOLLIDAY RN TO ENSURE THAT ALL HAZARDOUS OBJECTS WERE REMOVED FROM ROOM AT APPROX. 1130. WILL CONTINUE TO MONITOR.
--- NOTE | 2021-07-04 17:48 | NUR ---
SHIFT SUMMARY PT HAS REMAINED ALERT AND ORIENTED X 4, HE HAS BEEN COOPERATIVE WITH CARE. HE BECAME TEARFUL ON AND OFF DURING BEGINING OF SHIFT AND REPORTED REMORSE ABOUT BEING FOUND IN HIS CAR. THIS NURSE PROVIDED THERAPEUTIC COMMUNICATION AND PRESENSE WELL NOTIFIED ABOUT PT SI RISK STATUS, SEE PREVIOUS NOTES. SINCE SI RISK ASSESSMENT, PT'S MOOD HAS APPEARED ELEVATED AND HE HAS EVEN JOKED AROUND WITH STAFF MEMBERS INCLUDING THIS RN. HE WAS ELEVATED TO A MODERATE SI RISK WITH A 1:1 SITTER PER ORDERS. VITAL SIGNS HAVE REMAINED STABLE, SPO2 >95% VIA ROOM AIR. ROOM HAS BEEN MITIGATED TO KEEP PT SAFE WELL MONITORING VIA CAMERA. HE CONTINUED TO DENY PAIN, NAUSEA/VOMITTING T/O SHIFT. NO OTHER ACUTE CHANGES NOTED. WILL CONTINUE TO MONITOR UNTIL REPORT GIVEN. PT NOW QUIETLY WATCHING TV.
--- NOTE | 2021-07-04 19:30 | NUR ---
ASSUMPTION OF CARE RONY PALMER AND KIMBER NICOLE ASSUMED CARE OF PATIENT AT 1900. REPORT TAKEN FROM HANNAH NICOLE. PATIENT HAS SITTER IN ROOM DUE TO MODERATE SI PRECAUTIONS. ROOM SAFETY PRECAUTIONS ARE APPROPRIATE FOR THE PATIENTS CURRENT SI STATUS. CALL LIGHT WITHIN REACH. PATIENT IS INDEPENDENT WITH ALL CARE.
--- NOTE | 2021-07-05 03:41 | NUR ---
SHIFT SUMMARY PATIENT IS A&O X4. CALM AND COOPERATIVE WITH CARE AND STAFF. PATIENT DENIES SUICIDAL IDEATION/PLAN. PATIENT HAS JOKED WITH STAFF THROUGHOUT THE SHIFT, WITH NO SIGNS OF TEARFULNESS PREVIOUSLY REPORTED. PATIENT DENIES PAIN. VITAL SIGNS CONTINUE TO BE STABLE WITH O2 SATS >95% ON RA. PATIENT CONTINUES TO BE INDEPENT FOR ADLS AND IS ON A SOFT DIET. ORAL CARE DONE INDEPENDENTLY. SITTER AT BEDSIDE AND ROOM MITIGATED FOR SAFETY WITH REMOVAL OF LINES AND EQUIPMENT THAT CAN BE USED TO CAUSE SELF HARM. CURRENTLY PATIENT IS SLEEPING WITH TV ON. BED IN LOWEST POSITION AND CALL LIGHT WITHIN REACH.
--- NOTE | 2021-07-05 08:30 | NUR ---
PT CONCERN REGARDING CAR: Pt has been concerned regarding cars location, thought it was on [address] in [place]. Contacted EMS for information on pickup location. Pt picked up from [address] [facility] in [place] according to [facility]. Pt updated.
--- NOTE | 2021-07-05 09:59 | NUR ---
AM NOTE PATIENT IS PLEASANT, COOPERATIVE W CARE, AND A&OX4. NO TELE, SPO2>90% RA, VSS. PATIENT DENIES CP/PRESSURE, SOB, N/V, NUMBNESS/TINGLING. PATIENT IS INDEPENDENT. PATIENT IS ON MODERATE SI RISK INTEVERNTIONS, 1:1 SITTER. PATIENT DENIES SI AT THIS TIME.
[2021-07-05] MEDS ORDERED: B-1100 M1 PO (14:00)
[2021-07-05] MEDS ORDERED: FOLI1 PO (14:00)
[2021-07-05] MEDS ORDERED: BUPR100 PO (14:01)
--- NOTE | 2021-07-05 18:25 | NUR ---
DISCHARGE SUMMARY PATIENT REMAIEND A&0X4, PLEASANT, AND COOPERATIVE W CARE T/O THE SHIFT. DR JOSUE SAW PATIENT AT BEDSIDE THIS PM. PATIENT DENIED SI/HI. PATIENT DENIED CP/PRESSURE, SOB. N/V, NUMBNESS/TINGLING. IV REMOVED WNL. PATIENT WAS INSTRUCTED OF DISCHARGE INSTRUCTIONS. PATIENT LEFT IT GOOD CONDITION VIA TAXI AT APPROXIMATELY 1549.
--- NOTE | 2021-07-05 18:38 | NUR ---
I have reviewed the [facility] student documentation and am in agreement. Pt edcuated on discharge instructions, follow up appointment and medciations. Pt was given community resources for adapt and pcp and encouraged to set up appointments. Taxi to last home address per patient request. Pt left with belongings on foot per his request.
== END 2021-07-05 15:54 | disposition home or self-care (01) | DRG 896 ==
LOC: ER 12:51 → PCU 18:30 → ICUW 18:30 → PCU 20:55 → ICUE 20:59 → ICUW 06-28 07:38 → PCU 06-30 18:33
PROVIDERS: Emergency Medicine; Internal Medicine Critical Care Medicine; ADMIT Hospitalist
PROC: HZ2ZZZZ Detoxification Services for Substance Abuse Treatment (ICD-10-PCS; principal; 2021-06-27)
DX: F10.231 Alcohol dependence with withdrawal delirium (principal); G92.8 Other toxic encephalopathy; J69.0 Pneumonitis due to inhalation of food and vomit; J12.89 Other viral pneumonia; M62.82 Rhabdomyolysis; F10.20 Alcohol dependence, uncomplicated; I95.9 Hypotension, unspecified; F32.A Depression, unspecified; R09.02 Hypoxemia; B96.3 Hemophilus influenzae [H. influenzae] as the cause of diseases classified elsewhere; R45.1 Restlessness and agitation; R25.1 Tremor, unspecified; R23.8 Other skin changes; Z87.891 Personal history of nicotine dependence; Z90.49 Acquired absence of other specified parts of digestive tract; Z79.899 Other long term (current) drug therapy; Y90.0 Blood alcohol level of less than 20 mg/100 ml
CPT/HCPCS: 36415; 36600; 51702; 70450; 71045; 80048; 80053; 81001; 82140; 82550; 82553; 82803; 83605; 83735; 84100; 84443; 85025; 87070; 87077; 87086; 87185; 87205; 92526; 92610; 93005; 93010; 96361; 96374; 97110; 97116; 97162; 97166; 97530; 99285-25; A9270; G0480; J0295; J1650; J1953; J2060; J2310; J3411; J3475; J7030; J7040; J7042; J7050; J7060

== ENCOUNTER 2021-07-21 20:19 | Inpatient (IN) | payer OTHER ==
[~2021-07-21] VITALS: Ht 188 cm; Wt 85.0 kg
[~2021-07-21 20:19] MED LIST changes: +B-1100 M1 PO; +BUPR100 PO; +FOLI1 PO
[2021-07-21 20:50] LABS: BASOPHILS ABSOLUTE AUTO 0.06 K/mm3 (0.00-0.23); BASOPHILS PERCENT AUTO 0 % (0-2); EOSINOPHILS ABSOLUTE AUTO 0.16 K/mm3 (0.00-0.68); EOSINOPHILS PERCENT AUTO 1 % (0-6); Hematocrit 44.6 % (37.0-53.0); Hemoglobin 15.3 g/dL (13.5-17.5); IMMATURE GRAN PERCENT AUTO 1 % (0-1); LYMPHOCYTES ABSOLUTE AUTO 2.41 K/mm3 (0.84-5.20); LYMPHOCYTES PERCENT AUTO 16 % (21-46); MONOCYTES ABSOLUTE AUTO 1.87 K/mm3 (0.16-1.47); MONOCYTES PERCENT AUTO 13 % (4-13); Mean Corpuscular HGB 33.5 pg (26.0-34.0); Mean Corpuscular HGB Conc 34.3 g/dL (31.5-36.5); Mean Corpuscular Volume 98 fL (80-100); Mean Platelet Volume 11.3 fL (9.1-12.4); NEUTROPHILS ABSOLUTE AUTO 10.35 K/mm3 (1.96-9.15); NEUTROPHILS PERCENT AUTO 69 % (41-73); Platelet Count 161 K/mm3 (150-400); RDW Coefficient Variation 13.4 % (11.7-14.2); RDW Standard Deviation 47.9 fL (35.1-46.3); Red Blood Cell Count 4.57 M/mm3 (4.30-5.90); White Blood Cell Count 14.95 K/mm3 (4.00-11.30)
[2021-07-21 21:10] LABS: Albumin, Blood 2.9 g/dL (3.4-5.0); Albumin/Globulin Ratio 0.6 (0.8-1.8); Bilirubin, Total 0.7 mg/dL (0.1-1.0); Bun/Creatinine Ratio 12.4 (12.0-20.0); Calcium, Blood 8.6 mg/dL (8.5-10.1); Creatinine, Blood 0.81 mg/dL (0.60-1.20); Potassium, Blood 3.7 mmol/L (3.5-5.5); Total Protein, Blood 7.9 g/dL (6.4-8.2)
[2021-07-21 22:12] LABS: International Normalized Ratio 0.98; Prothrombin Time Results 10.3 Sec (9.7-11.5)
[2021-07-21 23:37] LABS: Anti-Xa UFH, PHA Monitoring <0.10 IU/mL
--- NOTE | 2021-07-22 06:10 | NUR ---
SUMMARY. PT ARRIVED TO ICU AT APPROXIMATELY 0048. ALERT AND ORIENTED, ON ROOM AIR, C/O 9 OUT OF 10 LEFT-SIDED CHEST PAIN THAT WORSENED WITH MOVEMENT AND INSPIRATION. PT MEDICATED WITH PRN PAIN MEDS, SEE EMAR. PG PLACED IN LYSSA. HEPARIN GTT STARTED, 18 U/KG/HR, DOSE MANAGED BY PHARMACY. NS AT 75 ML/HR, THIAMINE AND FOLIC ACID GIVEN. PT INDEPENDENT IN BED, USING URINAL, 700 MLS OUT THIS SHIFT. NO ACUTE EVENTS, VS STABLE, SEE SHIFT ASSESSMENT FOR FURTHER DETAILS. WILL CONTINUE TO MONITOR AND REPORT OFF TO DAYSHIFT RN.
--- NOTE | 2021-07-22 07:16 | NUR ---
ASSUME CARE: I have assumed care of this patient.
[2021-07-22 08:57] LABS: Albumin, Blood 2.1 g/dL (3.4-5.0); Albumin/Globulin Ratio 0.6 (0.8-1.8); BASOPHILS ABSOLUTE AUTO 0.05 K/mm3 (0.00-0.23); BASOPHILS PERCENT AUTO 0 % (0-2); Bilirubin, Total 0.6 mg/dL (0.1-1.0); Bun/Creatinine Ratio 10.4 (12.0-20.0); Calcium, Blood 7.1 mg/dL (8.5-10.1); Creatinine, Blood 0.77 mg/dL (0.60-1.20); EOSINOPHILS ABSOLUTE AUTO 0.11 K/mm3 (0.00-0.68); EOSINOPHILS PERCENT AUTO 1 % (0-6); Globulin, Blood 3.8 g/dL (2.2-4.0); Hematocrit 35.5 % (37.0-53.0); Hemoglobin 11.9 g/dL (13.5-17.5); IMMATURE GRAN ABSOLUTE AUTO 0.08 K/mm3 (0.00-0.10); IMMATURE GRAN PERCENT AUTO 1 % (0-1); LYMPHOCYTES ABSOLUTE AUTO 2.31 K/mm3 (0.84-5.20); LYMPHOCYTES PERCENT AUTO 18 % (21-46); MONOCYTES PERCENT AUTO 13 % (4-13); Mean Corpuscular HGB 33.6 pg (26.0-34.0); Mean Corpuscular HGB Conc 33.5 g/dL (31.5-36.5); Mean Corpuscular Volume 100 fL (80-100); NEUTROPHILS ABSOLUTE AUTO 8.77 K/mm3 (1.96-9.15); NEUTROPHILS PERCENT AUTO 67 % (41-73); Platelet Count 132 K/mm3 (150-400); Potassium, Blood 3.3 mmol/L (3.5-5.5); RDW Coefficient Variation 13.6 % (11.7-14.2); RDW Standard Deviation 49.7 fL (35.1-46.3); Red Blood Cell Count 3.54 M/mm3 (4.30-5.90); Total Protein, Blood 5.9 g/dL (6.4-8.2); White Blood Cell Count 13.02 K/mm3 (4.00-11.30)
--- NOTE | 2021-07-22 09:48 | NUR ---
PROVIDER PHONE CALL: Dr Hamilton called for diet order; awaiting return phone call.
[2021-07-22 10:02] LABS: Hematocrit 40.2 % (37.0-53.0); Hemoglobin 13.6 g/dL (13.5-17.5)
--- NOTE | 2021-07-22 18:22 | NUR ---
SHIFT SUMMARY: Pt up and moving around room independantly. He notes that he has been unable to sleep in the hospital as he and frequently disturbed feels like he can't breath and wakes up abruptly. For this reason he decline his 12:00pm vitals and assessment in order to get uninterruped rest. The possibility of ROSA was discussed with patient and he was encouraged to wear an SpO2 monitor. He declined at this time, but agreed to wear one while he sleeps tonight. No reports of chest pain or shortness of breath this shift. Pt notes that he feels significantly better today.
--- NOTE | 2021-07-22 19:00 | NUR ---
Assumed care. Report received from daysedinsonft RN. Pt alert and oriented, resting in bed ATT, on room air, vs stable. Heparin running at 20 u/kg/hr. No acute needs at this time, will continue to monitor.
[2021-07-23 06:16] LABS: Hematocrit 40.2 % (37.0-53.0); Hemoglobin 13.8 g/dL (13.5-17.5); Mean Platelet Volume 10.8 fL (9.1-12.4); Platelet Count 181 K/mm3 (150-400)
--- NOTE | 2021-07-23 06:16 | NUR ---
SHIFT SUMMARY. PT RESTED IN BED THROUGHOUT SHIFT. HEPARIN GTT AT 20 U/KG/HR. VS STABLE, NO ACUTE EVENTS OVERNIGHT. WILL CONTINUE TO MONITOR AND REPORT OFF TO DAYSHIFT RN.
--- NOTE | 2021-07-23 07:05 | NUR ---
ASSUMED CARE: PT RESTING QUIETLY IN BED AT THIS TIME. NSR ON TELE WITH A RATE OF 96. HEPARIN GTT RUNNING, RATE CONFIRMED WITH EMAR. NO ACUTE NEEDS OR CONCERNS AT THIS TIME.
--- NOTE | 2021-07-23 11:57 | NUR ---
DR ALFARO CAME TO SEE PT AND STATES HE WILL NOT BE DISCHARGING TODAY AND WANTS TO KEEP HIM ON THE HEPARIN GTT FOR A FEW MORE DAYS AND THEN TRANSITION TO PO. DR AWARE THAT PT IS STILL HAVING SHARP CHEST PAINS AT TIMES AND KEEPING PT PCU STATUS. TOXICOLOGY SUPERVISOR AWARE WELL. NO ACUTE NEEDS OR CONCERNS.
--- NOTE | 2021-07-23 17:43 | NUR ---
SHIFT SUMMARY: PT REMAINS ON HEPARIN GTT FOR DVT AND PE. SINUS TACH IN LOW 100S THROUGHOUT SHIFT. STATES HE HAS PAIN WITH DEEP BREATHS AND ACTIVITY. REMAINS ON RA. PLAN IS FOR A FEW MORE DAYS OF HEPARIN AND TRANSITION TO PO MEDS. CARE MANAGEMENT WORKING ON SAFE DISCHARGE AND RESOURCES DUE TO PT LIVING OUT OF CAR AND DOES NOT HAVE A PADILLA FOR IT. MEDICATING FOR PAIN WITH TYLENOL. NO FURTHER NEEDS AT THIS TIME.
--- NOTE | 2021-07-23 19:26 | NUR ---
Assumed Care. AOx3, able to make all needs known. Independent in the bed. Uses urinal at bedside. LS clear with diminished on the left. Sats 95% on RA. Reports sharp stabbing pain left side of chest with deep breath. Tends to lay on right side for relief. No cough noted. Denies SOB. Sinus with rate in the 90's. Occationally has some tachycardia. REsp tachypneic in the 30's. Shallow. BP 140's and stable. Just had tylenol for pain. Pulses strong bilaterally. Pedal pulses strong and equal. Mild pain to anterior side of right leg. Good cap refill, no numbness or tingling. Good appetite, BT active. Urinal at bedside, clear yellow urine. Denies any needs at this time. Will continue to montior.
--- NOTE | 2021-07-23 23:45 | NUR ---
Report given to Edyta NICOLE as pt will be transferred to PCU 3.
[2021-07-24 00:24] LABS: Hematocrit 39.5 % (37.0-53.0); Hemoglobin 13.5 g/dL (13.5-17.5); Mean Corpuscular HGB 33.2 pg (26.0-34.0); Mean Corpuscular HGB Conc 34.2 g/dL (31.5-36.5); Mean Corpuscular Volume 97 fL (80-100); Mean Platelet Volume 9.9 fL (9.1-12.4); Platelet Count 203 K/mm3 (150-400); RDW Coefficient Variation 13.3 % (11.7-14.2); RDW Standard Deviation 47.8 fL (35.1-46.3); Red Blood Cell Count 4.07 M/mm3 (4.30-5.90); White Blood Cell Count 13.39 K/mm3 (4.00-11.30)
--- NOTE | 2021-07-24 05:45 | NUR ---
SHIFT SUMMARY NO ACUTE EVENTS DURING SHIFT. PATIENT WAS TRANSFERRED FROM ICU TO PCU DURING SHIFT. STOOD AND TRANSFERRED FROM ICU BED TO PCU BED SUCCESSFULLY. HEPARIN INF @ 24 UNITS/KG/HR TO LYSSA PG. 20G TO LT AC SALINE LOCKED. PATIENT REMAINED A&O X 4. FOLLOWS COMMANDS AND IS PLEASANT AND COOPERATIVE WITH CARE. MAINTAINED SR WITH RATE 90'S. PULSES IN ALL EXTREMITIES STRONG. RESPIRATIONS SHALLOW WITH OCCASSIONAL NONPRODUCTIVE COUGH. LT SIDED RIB PAIN WITH DEEP BREATHING AND COUGHING. PAIN MANAGED WITH SPLINTING OF RIBS, TYLENOL, AND FENTANYL. ONE DOSE OF 25MCG FENTANYL IV AND ONE DOSE OF 650MG PO TYLENOL USED FOR PAIN CONTROL. BT ACTIVE X 4. TOLERATES DIET WITH NO NAUSEA OR VOMITING. URINAL AT BEDSIDE, BUT NO URINE OUTPUT SINCE ARRIVING TO PCU. NO OTHER CHANGES DURING SHIFT.
--- NOTE | 2021-07-24 12:00 | NUR ---
ACTIVITY: PT UP TO SHOWER INDEP. PT ENCOURAGED TO WALK AND SIT IN CHAIR. PT TOLERATES SHORT DISTANCES BUT IS SOB WITH EXERTION AND FATIGUES QUICKLY. ASH SITTING IN CHAIR WELL. CAN TRANSFER BED TO CHAIR INDEP.
--- NOTE | 2021-07-24 17:11 | NUR ---
PT HAS BEEN STABLE THIS SHIFT. PT ALERT WITH CIWA OF 0. PT DC OFF HEPARIN GGT AND CHANGED TO ORAL ANTICOAGULANT. PERCOCET ORDERED FOR PAIN, PT REPORTS EFFECTIVE. PT 1 ASSIST OOB TO SHOWER AND SIT IN CHAIR. CAN TOLERATE STANDING FOR SHORT PERIODS OF TIME BUT IS PAINFUL AND SOB WITH MINIMAL EXERTION. SATS STABLE ON RA. TELE, NSR. LS DIMINISHED. NON PROD COUGH. USES URINAL. PT HAS BM TODAY. TOLERATING DIET WELL. AM LABS ORDERED. CARE MANAGEMENT ASSISTING PATIENT FOR POSSIBLE DC TOMORROW. USES CALL LIGHT APPROPRIATELY NEEDED.
--- NOTE | 2021-07-24 22:26 | NUR ---
CARE ASSUMPTION: RECEIVED REPORT FROM COREY MIRAMONTES. PATIENT RESTING IN BED. DENIES SOB OR PAIN "UNLESS I WALK." RIGHT LEG HOT AND PAINFUL TO TOUCH. PATIENT CONCERNED ABOUT BEING DISCHARGED "TOO SOON" SINCE HE'LL HAVE TO WALK EVERYWHERE D/T CAR PADILLA BEING STOLEN AND THAT IS WHAT PATIENT STATES CAUSE HIS PE LAST TIME. PATIENT PLEASANT AND COOPERATIVE WITH CARE. AMBULATES SELF TO TOILET. BED LOW WITH CALL IGHT IN REACH. WILL CONTINUE TO MONITOR.
[2021-07-25 04:07] LABS: Hemoglobin 13.1 g/dL (13.5-17.5); Mean Corpuscular HGB Conc 33.6 g/dL (31.5-36.5); Mean Corpuscular Volume 98 fL (80-100); Mean Platelet Volume 9.9 fL (9.1-12.4); Platelet Count 236 K/mm3 (150-400); RDW Coefficient Variation 13.5 % (11.7-14.2); RDW Standard Deviation 49.1 fL (35.1-46.3); Red Blood Cell Count 3.97 M/mm3 (4.30-5.90)
[2021-07-25 04:30] LABS: Albumin, Blood 2.4 g/dL (3.4-5.0); Anion Gap 7 mmol/L (6-16); Blood Urea Nitrogen 10 mg/dL (8-24); Bun/Creatinine Ratio 12.2 (12.0-20.0); CO2, Blood 26 mmol/L (21-32); Calcium, Blood 8.7 mg/dL (8.5-10.1); Chloride, Blood 105 mmol/L (98-108); Creatinine, Blood 0.82 mg/dL (0.60-1.20); Glomerular Filtration Rate 102 (60-); Glucose, Blood 100 mg/dL (70-99); Phosphorus, Blood 3.8 mg/dL (2.5-4.9); Potassium, Blood 4.2 mmol/L (3.5-5.5); Sodium, Blood 138 mmol/L (136-145)
--- NOTE | 2021-07-25 05:15 | NUR ---
SHIFT SUMMARY: PATIENT VS WNL, DENIES SOB OR CHEST PAIN, HAS FREQUENT THROBBING PAIN IN RIGHT LEG AND IS CONCERNED HE WILL "THROW A CLOT" WHEN HE IS DISCHARGED. SLEPT T/O THE NIGHT, MILDLY APNEIC (SATS 92-94%) FOR SHORT PERIODS DURING DEEP SLEEP. PHONE IN ROOM DOES NOT WORK - NOTIFIED NETWORK SECURITY ARCHITECT AFTER TRYING TWO DIFFERENT PHONES IN THE PHONE [place]. NO ADVERSE EVENTS THIS SHIFT. PLAN TO D/C TODAY. WILL CONTINUE TO MONITOR AND REPORT TO ONCOMING RN.
--- NOTE | 2021-07-25 08:43 | NUR ---
Am note Pt alert, oriented x4; calm and cooperative with care. Pt reporting headache this am, 06/15, and continues to report chest and right leg pain, medicated per emar. Pt ls diminished t/o, spo2 >90% on ra. Tele sinus tach at 100, bp stable. Bt normoactive x4 quad, abd soft nontedner. Right leg edema noted. Other vss. No s/sx of distress noted. Will continue to monitor.
[2021-07-25] MEDS ORDERED: ACET325 PO (09:22)
[2021-07-25] MEDS ORDERED: MULVITA PO (09:22)
[2021-07-25] MEDS ORDERED: Percocet 5-3251 EACH PO (09:23)
[2021-07-25] MEDS ORDERED: XARELTO15 MG PO (09:31)
[2021-07-25] MEDS ORDERED: B-1100 M1 PO (09:32)
[2021-07-25] MEDS ORDERED: XARELTO20 MG PO (09:32)
--- NOTE | 2021-07-25 13:25 | NUR ---
DISCHARGE SUMMARY No acute changes noted during shift. Medicated X2 for pain, once with tylenol for headache and once with percocet for rle and rib/chest pain. Pt sob with exertion, educated pt on planning short distances with rest breakes in between. Pt expressed concerns regarding living situation and transportation; provided resourses regarding mission, set up transportation to take pt to pharmacy and then requested address. Pt epxressed concerns regarding following up and transportation. Educated pt on [facility] and provided contact information, told him to call monday and request a careworker and educated on [facility], provided address and phone number to request additional assistance. Medications faxed to [facility] as patients pharmacy was closed today, edcuated pt on the prescriptions and the importance of taking them on time and not skipping doses. Pt edcuated on discharge instructions and follow up appointments, pt intructed to call [facility] tomorrow to set up follow up appointment. Pt also encouraged to follow up with [facility]. PIV removed. Pt left room via wheelchair.
== END 2021-07-25 12:35 | disposition home or self-care (01) | DRG 299 ==
LOC: ER 20:19 → ICUW 07-22 00:04 → PCU 07-23 23:56
PROVIDERS: Emergency Medicine; Internal Medicine; Physician Assistant; ADMIT Internal Medicine
DX: I82.411 Acute embolism and thrombosis of right femoral vein (principal); I26.92 Saddle embolus of pulmonary artery without acute cor pulmonale; I82.431 Acute embolism and thrombosis of right popliteal vein; I82.451 Acute embolism and thrombosis of right peroneal vein; I82.441 Acute embolism and thrombosis of right tibial vein; S29.011A Strain of muscle and tendon of front wall of thorax, initial encounter; F17.210 Nicotine dependence, cigarettes, uncomplicated; F32.A Depression, unspecified; F10.20 Alcohol dependence, uncomplicated; E88.09 Other disorders of plasma-protein metabolism, not elsewhere classified; X58.XXXA Exposure to other specified factors, initial encounter; Z90.49 Acquired absence of other specified parts of digestive tract; I07.1 Rheumatic tricuspid insufficiency; I27.20 Pulmonary hypertension, unspecified
CPT/HCPCS: 36415; 71260; 80053; 80069; 83690; 83880; 84484; 85014; 85018; 85025; 85027; 85049; 85520; 85610; 85730; 93005; 93010; 93306; 93971; 96374; 99285-25; A9270; C1751; J1644; J3010; J3411; J3475; J7042; Q9967